=== PATIENT | male | born 1945 | race Caucasian/White ===

== ENCOUNTER 2017-06-27 07:30 | Outpatient (CLI) | payer MEDICARE, OTHER ==
[~2017-06-27] VITALS: Ht 177.8 cm; Wt 71.7 kg
--- NOTE | ~2017-06-27 | OP ---
PATIENT NAME: CHAZ JACOBSON MEDICAL RECORD: [id number] :43 LOCATION:D.CAT ADMISSION DATE: SURGEON: FATEMEH DOUGLASS MD DATE OF OPERATION: 06/27/2017 PROCEDURES: 1. PTCA stent to LAD. 2. Left heart catheterization. 3. Selective coronary angiography. 4. Left ventriculogram. INDICATION: Angina and coronary artery disease. PROCEDURE IN DETAIL: After informed consent was obtained and after detailed explanation of risks, benefits as well as alternative therapies, the patient elected to proceed with angiogram and angioplasty. The right radial area was prepped and draped in normal sterile fashion. Right radial artery was cannulated via modified Seldinger technique with placement of 6-Yoruba sheath. All catheters exchanged through this sheath. FINDINGS: Left ventriculogram was performed in standard 30 degree SESAY view reveals good cardiac wall motion throughout all segments. Overall ejection fraction 55% to 60%. SELECTIVE CORONARY ANGIOGRAPHY: 1. Left main is with no significant angiographic disease. 2. Left anterior descending has a long area of 80% to 90% stenosis in the proximal vessel. 3. Left circumflex shows moderate irregularities. 4. The right coronary artery has previously placed stents. There was greater than 70% in-stent restenosis in the mid vessel. PTCA STENT OF THE LAD: The stent used was a 2.5 x 26 mm Wilfrido. Result was 0% residual stenosis. OVERALL IMPRESSION: Successful percutaneous transluminal coronary angioplasty stent of the left anterior descending going from 80% to 90% initial stenosis. PLAN: PTCA stent of the RCA in the near future. TRANSINT:[id number] Voice Confirmation ID: [id number] DOCUMENT ID: [id number] FATEMEH DOUGLASS MD at 1759 CC: [id number] DICTATION DATE: 06/27/17 1023 BED SETTER: 06/27/17 1328 DEP CLI 06/28/17 [place] [id number]
--- NOTE | ~2017-06-27 | DS ---
PATIENT:CHAZ ACEVES :43 MEDICAL RECORD: [id number] DISCHARGE SUMMARY ADMISSION DATE: 06/27/17 DISCHARGE DATE: 06/28/17 DISCHARGE DIAGNOSES: 1. Angina. 2. Coronary artery disease. 3. Percutaneous transluminal coronary angioplasty and stent, left anterior descending and right coronary artery this admission. 4. Hypertension. 5. Hyperlipidemia. HOSPITAL COURSE: Mr. Aceves presents with anginal symptomatology, found to have 2-vessel coronary artery disease, underwent successful PTCA and stent of the LAD and RCA. Had an uneventful postop course. He was discharged home with the addition of aspirin and Plavix to his medical regimen. Will follow up with [facility] in 1 month. TRANSINT:[id number] Voice Confirmation ID: [id number] DOCUMENT ID: [id number] FATEMEH DOUGLASS MD at 1800 CC: [id number] DICTATION DATE: 06/28/17820 SAND CUTTER OPERATOR: 06/29/17 0224 DEP CLI 06/28/17 [place] [id number] [place] [address]
--- NOTE | ~2017-06-27 | HEMODYNAMI ---
PATIENT:CHAZ JACOBSON MEDICAL RECORD: [id number] : 43 [facility] [id number] ADMISSION DATE: 06/27/17 Generatedon:06/28/20178:22 Patient name: CHAZ JACOBSON Patient #: [id number] : 1945 Date of study: 06/28/2017 Page: Of Hemodynamic Procedure Report Patient Data Patient Demographics Procedure consent was obtained First Name: CHAZ Gender: Male Last Name: KAVON : 1945 Middle Initial: B Age: 72 year(s) Patient #: [id number] Race: SSN: [id number] Additional ID: [id number] Contact details Address: [address] [place] [address] State: [place] City: [place] Zip code: [address] Past Medical History Allergies: No known allergies Admission Admission Data Admission Date: 06/27/2017 Admission Time: 15:04 Arrival Date: 06/27/2017 Arrival Time: 15:04 Admit Source: Other Insurance Payor: Medicare Room #: D.2118 Height (in.): 5.11 Height (cm.): 12.98 Lab Results Lab Result Date: 06/27/2017 Lab Result Time: 0:00 Biochemistry Name Units Result Min Max BUN mg/dl 16 --(---*)-- 7 18 Creatinine mg/dl 1.1 --(--*-)-- 0.6 1.3 CBC Name Units Result Min Max Hemoglobin g/dl 13.8 --(*---)-- 13.5 17.5 Procedure Procedure Types Cath Procedure PCI Procedure Coronary Stent Coronary Stent Initial Miscellaneous Procedures Moderate Sedation up to 30 minutes Procedure Description Procedure Date Procedure Date: 06/28/2017 Procedure Start Time: 8:11 Procedure End Time: 8:21 Procedure Staff Name Function Tawanda Collier MD Performing Physician Makenzie Liz RT Monitor Eveline Arnold RT Scrub Buffie Gipson RN Nurse Procedure Data Cath Procedure Fluoroscopy Diagnostic fluoroscopy Total fluoroscopy Time: 1.4 time: 1.4 min min Diagnostic fluoroscopy Total fluoroscopy dose: 88 dose: 88 mGy mGy Contrast Material Contrast Material Type Amount (ml) Isovue 300 30 Entry Location Entry Primary Successful Side Size Upsize Upsize Entry Closure Succes sful Closure Location (Fr) 1 (Fr) 2 (Fr) Remarks Device Remarks Femoral Right 6 Fr Exoseal artery Short Estimated blood loss: 5 ml Procedure Complications No complications Procedure Medications Medication Administration Route Dosage Oxygen NC 2 l/min Heparin Flush Bag added to field 2 bags (1000units/500ml NS) 0.9% NaCl I.V. 100 ml/hr Plavix P.O. 75 mg Heparin Bolus I.V. 4000 units Fentanyl I.V. 100 mcg Versed I.V. 2 mg Fentanyl I.V. 100 mcg Hemodynamics Rest HGB: 13.8 (g/dl) Heart Rate: 60 (bpm) Snapshots Pre Cath Intra NCS Post Cath Vital Signs Time Heart Resp SPO2 etCO2 NIBP (mmHg) Rhythm Pain Sedation Rate (ipm) (%) (mmHg) Status Level (bpm) 7:57:23 57 16 97 0 162/90(136) NSR 0 (11) 10(A) , No pain 8:01:45 59 16 98 0 152/81(131) NSR 0 (11) 10(A) , No pain 8:06:01 58 17 98 0 136/83(128) NSR 0 (11) 10(A) , No pain 8:10:11 61 20 98 0 157/85(134) NSR 0 (11) 10(A) , No pain 8:14:31 54 23 100 0 147/79(123) NSR 0 (11) 10(A) , No pain 8:18:47 61 15 100 0 138/78(120) NSR 0 (11) 10(A) , No pain Medications Time Medication Route Dose Verified Delivered Reason Notes Effectiveness by by 8:02:37 Oxygen NC 2 Tawanda Prasad Per physician l/min Amira Gill RN 8:02:44 Heparin Flush added 2 Tawanda Prasad used for Bag to bags Amira Gill compacting machine operator/tender (1000units/500ml field NS) 8:02:52 0.9% NaCl I.V. 100 Tawanda Prasad Per physician ml/hr Amira Gill RN 8:03:20 Plavix P.O. 75 mg Tawanda Prasad for Amira Gill RN antiplatelet therapy 8:13:38 Fentanyl I.V. 100 Tawanda Wan for sedation mcg Amira Gipson RN 8:13:47 Versed I.V. 2 mg Tawanda Wan for sedation Amira Gipson RN 8:15:34 Heparin Bolus I.V. 4000 Tawanda Wan for verifie d units Amira Gipson RN anticoagulation by 8:16:49 Fentanyl I.V. 100 Tawanda Wan for sedation [facility] Amira Gipson RN Procedure Log Time Note 7:37:33 Informed consent obtained and on chart 7:37:56 Patient Height : 5.11 inches 7:38:17 Admit Source: Other 7:38:24 Arrival Date: 06/27/2017 3:04:00 PM 7:38:31 Insurance Payor : Medicare 7:39:20 Makenzie Liz RT(R) sent for patient. Start room use. 7:39:20 Time tracking: Regular hours 7:39:25 Plan of Care:Hemodynamics will remain stable., Cardiac rhythm will remain stable., Comfort level will be maintained., Respiratory function will remain adequate., Patient/ family verbilizes understanding of procedure., Procedure tolerated without complication., Recovers from procedure without complications.. 7:52:11 Patient received from PCU to CCL 2 Alert and oriented. Tansferred to table in Supine position. 7:52:12 Warm blankets applied, and radha hugger turned on for patient comfort. 7:52:12 Correct patient and procedure confirmed by team. 7:52:13 ECG and BP/O2 sat monitors applied to patient. 7:52:15 Full Disclosure recording started 7:56:16 Vital chart was started 8:00:27 Baseline sample Acquired. 8:00:32 Rhythm: sinus rhythm 8:00:39 H&P Date Dictated: 06/28/2017 Within 30 days and on chart., H&P Addendum completed by physician on day of procedure. (MUST COMPLETE FOR ALL OUTPATIENTS). 8:01:24 Pre-procedure instructions explained to patient. 8:01:25 Pre-op teaching completed and patient verbalized understanding. 8:01:26 Family in waiting room. 8:01:36 Patient NPO since Midnight. 8:01:54 Is the patient allergic to Iodine/contrast media? No. 8:01:55 Was the patient premedicated? No 8:01:57 Is patient on blood thinner?Yes 8:02:00 ACC The patient was administered the following blood thiners within the last 24 hours: ACCPlavix 8:02:02 Patient diabetic? Yes. 8:02:11 If diabetic: On Metformin? Yes 8:02:15 If on Metformin: Last Dose? 06/24/2017 8:02:29 Previous problem with sedation/anesthesia? No ? 8:02:30 Snore? Yes 8:02:31 Sleep apnea? No 8:02:36 Deviated septum? No 8:02:36 Opens mouth fully? Yes 8:02:37 Oxygen 2 l/min NC was administered by Osmar Gill RN; Per physician; 8:02:37 Sticks out tongue? Yes 8:02:39 Airway obstruction? No ? 8:02:44 Heparin Flush Bag (1000units/500ml NS) 2 bags added to field was administered by Osmar Gill RN; used for procedure; 8:02:44 Dentures? No ? 8:02:52 0.9% NaCl 100 ml/hr I.V. was administered by Osmar Gill RN; Per physician; 8:02:56 Pre procedure: right dorsailis pedis pulse 2+ Normal; easily identifiable; not easily obliterated 8:02:59 Pre procedure: left dorsailis pedis pulse 2+ Normal; easily identifiable; not easily obliterated 8:03:20 Plavix 75 mg P.O. was administered by Osmar Gill RN; for antiplatelet therapy; 8:04:45 Patient pain scale 0/10 ?. 8:04:54 IV patent on arrival in left forearm with 0.9% NaCl at [facility]. 8:05:01 Lab results completed and on chart. 8:05:06 Right groin area was prepped with chlora-prep and draped in sterile fashion 8:05:17 Alarms reviewed by Rahel N. 8:05:18 Sharps counted by scrub and verified by R.N. 8:05:38 Physician arrived 8:05:39 --------ALL STOP TIME OUT------ 8:05:40 Final Timeout: patient, procedure, and site verified with staff and physician. All members of the team are in agreement. 8:06:30 Right groin site verified by team. 8:06:33 Physical assessment completed. ASA score P 2 - A patient with mild systemic disease as per Tawanda Collier MD. 8:06:37 Sedation plan: IV Moderate Sedation Medication:Versed, Fentanyl 8:10:50 Zero performed for pressure channel P1 8:10:54 Zero performed for pressure channel P1 8:11:00 Zero performed for pressure channel P1 8:11:10 Procedure started. 8:11:23 Local anesthetic to right femoral artery with Lidocaine 2% by Tawanda Collier MD.INITIAL ACCESS ONLY 8:11:32 A 6 Fr Short sheath was inserted into the Right Femoral artery 8:11:45 Use device set Femoral Dx 8:11:46 ACIST Syringe (65646) opened to sterile field. 8:11:47 Bag Decanter (2002S) opened to sterile field. 8:11:50 Medline Cath Pack ([id number]) opened to sterile field. 8:11:52 DIAGNOSTIC WIRE .035 260cm J wire (143594) opened to sterile field. 8:11:53 ACIST Hand Control (14339) opened to sterile field. 8:11:53 ACIST Manifold (03744) opened to sterile field. 8:11:57 Tegaderm 4 x 4 (1626W) opened to sterile field. 8:12:03 SHEATH 6FR Speer (QOD659) opened to sterile field. 8:12:08 EXOSEAL 6Fr (EX600) opened to sterile field. 8:12:52 CHOICE PT Extra Support 182cm wire ([id number]) opened to sterile field. 8:12:53 INFLATOR Merit BasixCompak (BS5718) opened to sterile field. 8:13:38 Fentanyl 100 mcg I.V. was administered by Soco Gipson RN; for sedation; 8:13:47 Versed 2 mg I.V. was administered by Soco Gipson RN; for sedation; 8:15:31 GUIDE 6FR HS I catheter (LA6HSI) opened to sterile field. 8:15:34 Heparin Bolus 4000 units I.V. was administered by Soco Gipson RN; for anticoagulation; verified by 8:15:42 6 Fr hs 1 guide catheter was inserted over the wire 8:15:52 choice pt wire advanced. 8:16:12 Wire advanced across lesion. 8:16:49 Fentanyl 100 mcg I.V. was administered by Soco Gipson RN; for sedation; 8:17:48 Inflation Number: 1 A GUSTAVO RX 3.5 x 15 stent ([id number]) was prepped and advanced across the Mid RCA. The stent was deployed at 21 DAYO for 0:10 (min:sec). 8:17:54 Inflation number: 2 The stent balloon was then re-inflated across the Mid RCA to 23 DAYO for 0:10 (min:sec). 8:18:13 Stent catheter was removed intact over wire. 8:18:13 Wire removed. 8:18:14 Guide catheter removed. 8:18:20 Sheath removed intact; hemostasis achieved with Exoseal to the Right Femoral artery. 8:18:22 Procedure ended.(Physican Out) 8:19:50 Fluoroscopy time 01.40 minutes. 8:19:53 Flurop Dose total: 88 8:19:53 Fluoroscopy dose: 88 mGy 8:20:02 Contrast amount:Isovue 300 30ml. 8:20:04 Sharps counted by scrub and verified by R.N. 8:20:21 Insertion/operative site no bleeding no hematoma. 8:20:23 Post-op/insertion site Right Femoral artery dressed using a 4 x 4 and Tegaderm. 8:20:26 Post right femoral artery:stable 8:20:27 Post Procedure Pulses reassessed and unchanged 8:20:43 Post procedure rhythm: unchanged. 8:20:46 Estimated blood loss: 5 ml 8:20:47 Post procedure instruction explained to patient.Patient verbalizes understanding. 8:20:48 Patient needs reinforcement of post procedure teaching. 8:21:18 Procedure type changed to Cath procedure, PCI procedure, Coronary Stent, Coronary Stent Initial, Miscellaneous Procedures, Moderate Sedation up to 30 minutes 8:21:19 Procedure and supply charges have been captured, reviewed, submitted and are correct. 8:21:23 Procedure Complication : No complications 8:21:29 Vital chart was stopped 8:21:29 See physician's report for complete and final results. 8:21:32 Report given to [facility]. 8:21:34 Patient transfered to [facility] with Stretcher. 8:21:36 Procedure ended. 8:21:36 Full Disclosure recording stopped 8:21:43 ACC-PCI Only Patient was given prescriptions, or instructed by Tawanda Collier MD to start/continue the following medications upon discharge: Plavix 8:21:45 End room use (Document Last) Intervention Summary Intervention Notes Time ActionType Lesion and Equipment Used Action# Pressure Duration Attributes 8:17:48 Place stent Mid RCA GUSTAVO RX 3.5 x 1 21 00:10 15 stent ([id number]) 8:17:54 Reinflate Mid RCA GUSTAVO RX 3.5 x 2 23 00:10 stent 15 stent balloon ([id number]) Device Usage Item Name Manufacture Quantity Catalog Number Hospital Part Current M inimal Lot# / Charge Number Stock Stock Serial# Code ACIST Syringe Acist 1 93010 974959 227871 674508 2 0 (95625) Medical Systems Inc Bag Decanter Microtek 1 2001S 145844 49102 000321 5 (2001S) Medical Inc. Medline Cath Cardinal 1 [id number] 467280 08264 286353 5 Navent ([id number]) DIAGNOSTIC St Octaviano 1 760545 469505 153630 706435 3 0 WIRE .035 260cm J wire (214648) ACIST Hand Acist 1 32929 300881 846395 993873 5 Control Medical (80815) Systems Inc ACIST Manifold Acist 1 20455 856592 786808 482762 5 (21261) Medical Systems Inc Tegaderm 4 x 4 3M 1 1626W 422352 000934 759443 5 (1626W) SHEATH 6FR Terumo 1 IZQ085 387477 731425 621835 4 0 Speer ([id number]) EXOSEAL 6Fr Cardinal 1 EX600 266888 093319 069143 1 0 (EX600) [facility] [place] 1 [id number] 199939 468467 454770 5 Extra Support Scientific 182cm wire ([id number]) INFLATOR Merit Merit 1 PI9593 013540 853292 498562 1 5 Motostrano (XL5873) GUIDE 6FR HS I Medtronic 1 LA6HSI 814230 38096 649989 1 catheter (LA6HSI) GUSTAVO RX 3.5 x Medtronic 1 [id number] 447624 5976754 448153 5 [id number] 15 stent ([id number]) Signature Audit [place] Stage Time Signature Unsigned Intra-Procedure 06/28/2017 Makenzie Liz 8:22:47 AM RT(R) Signatures Monitor : Makenzie Liz RT Signature : Date : Time : [place] [id number] [place] [address]
--- NOTE | ~2017-06-27 | OP ---
PATIENT NAME: CHAZ JACOBSON MEDICAL RECORD: [id number] :43 LOCATION:D.CAT ADMISSION DATE: SURGEON: FATEMEH DOUGLASS MD DATE OF OPERATION: 06/28/2017 PROCEDURES: 1. PTCA stent to RCA. 2. Selective coronary angiography. PROCEDURE IN DETAIL: After informed consent was obtained and after detailed explanation of risks, benefits as well as alternative therapies, the patient elected to proceed with angiogram and angioplasty. The right femoral area was prepped and draped in normal sterile fashion. The right femoral artery was cannulated via modified Seldinger technique with placement of 6-Estonian sheath. All catheters exchanged through this sheath. FINDINGS: The right coronary artery has a 75% stenosis that has instent restenosis in the mid vessel. This was addressed with a 3.5 x 15 mm Wilfrido. Stent taken to 23 atmospheres. Result was 0% residual stenosis. OVERALL IMPRESSION: Successful percutaneous transluminal coronary angioplasty stent of the right coronary artery going from 75% initial stenosis to 0% residual. TRANSINT:[id number] Voice Confirmation ID: [id number] DOCUMENT ID: [id number] FATEMEH DOUGLASS MD at 1800 CC: [id number] DICTATION DATE: 06/28/17 08 OFFICE MACHINE SERVICE SUPERVISOR: 06/28/17 1130 [facility] CLI 06/28/17 [place] [address] [place] [address]
--- NOTE | ~2017-06-27 | HEMODYNAMI ---
PATIENT:CHAZ JACOBSON MEDICAL RECORD: [id number] : 43 LOCATION:[facility] ADMISSION DATE: 06/27/17 Generatedon:06/27/201710:23 Patient name: CHAZ JACOBSON Patient #: [id number] SSN: : 1945 Date of study: 06/27/2017 Page: Of Hemodynamic Procedure Report Patient Data Patient Demographics Procedure consent was obtained First Name: CHAZ Gender: Male Last Name: KAVON : 1945 [facility] Initial: B Age: 72 year(s) Patient #: [id number] Race: Unknown Additional ID: [id number] Contact details Address: [address] [place] [address] State: [place] City: [place] Zip code: [address] Past Medical History Allergies: No known allergies Admission Admission Data Admission Date: 06/27/2017 Admission Time: 9:30 Height (in.): 5.11 Height (cm.): 12.98 Lab Results Lab Result Date: 06/27/2017 Lab Result Time: 0:00 Biochemistry Name Units Result Min Max BUN mg/dl 16 --(---*)-- 7 18 Creatinine mg/dl 1.1 --(--*-)-- 0.6 1.3 CBC Name Units Result Min Max Hemoglobin g/dl 13.8 --(*---)-- 13.5 17.5 Procedure Procedure Types Cath Procedure Diagnostic Procedure [facility] w/Coronaries PCI Procedure Coronary Stent Coronary Stent Initial Miscellaneous Procedures Moderate Sedation up to 15 minutes Procedure Description Procedure Date Procedure Date: 06/27/2017 Procedure Start Time: 9:50 Procedure End Time: 10:23 Procedure Staff Name Function Tawanda Collier MD Performing Physician Jayden Layton RT Monitor Madeline Rust RT Scrub Soco Gipson RN Nurse Osmar Gill RN Reading Coach Procedure Data Cath Procedure Fluoroscopy Diagnostic fluoroscopy Total fluoroscopy Time: time: 14.3 min 14.3 min Diagnostic fluoroscopy Total fluoroscopy dose: dose: 706.54 mGy 706.54 mGy Contrast Material Contrast Material Type Amount (ml) Isovue 300 184 Entry Location Entry Primary Successful Side Size Upsize Upsize Entry Closure Dupont ccessful Closure Location (Fr) 1 (Fr) 2 (Fr) Remarks Device Remarks Radial Right 6 Fr Mechanical artery Short Compression Estimated blood loss: 10 ml Diagnostic catheters Device Type Used For End Catheter Placement DIAGNOSTIC Willard 110cm 5 Procedure Fr catheter ([id number]) Procedure Medications Medication Administration Route Dosage Oxygen NC 2 l/min Lidocaine 2% added to field 20 Heparin Flush Bag added to field 2 bags (1000units/500ml NS) 0.9% NaCl I.V. 100 ml/hr Radial Cocktail I.A. 1 syringe (Verapomil 2mg/Nitro 400mcg/Heparin 1500units) Versed I.V. 1 mg Fentanyl I.V. 50 mcg Versed I.V. 1 mg Fentanyl I.V. 50 mcg Fentanyl I.V. 50 mcg Heparin Bolus I.V. 4000 units Fentanyl I.V. 50 mcg Versed I.V. 1 mg Versed I.V. 1 mg Hemodynamics Rest HGB: 13.8 (g/dl) Heart Rate: 57 (bpm) Pressure Samples Time Site Value (mmHg) Purpose Heart Use Rate(bpm) 9:52 LV 100/8,15 Snapshot 62 Snapshots Pre Cath Intra NCS Post Cath Vital Signs Time Heart Resp SPO2 etCO2 NIBP (mmHg) Rhythm Pain Sedation Rate (ipm) (%) (mmHg) Status Level (bpm) 9:20:47 53 22 98 0 158/91(114) NSR 0 (11) 10(A) , No pain 9:25:07 56 16 100 34.1 152/92(126) NSR 0 (11) 10(A) , No pain 9:29:27 55 16 100 31.8 147/80(130) NSR 0 (11) 10(A) , No pain 9:33:45 57 15 98 35.6 146/85(133) NSR 0 (11) 10(A) , No pain 9:37:53 60 15 99 34.3 141/92(124) NSR 0 (11) 10(A) , No pain 9:42:09 54 16 97 32.6 136/78(119) NSR 0 (11) 10(A) , No pain 9:46:23 57 15 97 29.8 126/80(113) NSR 0 (11) 9(A) , No pain 9:50:31 56 16 99 35.6 131/80(120) NSR 0 (11) 9(A) , No pain 9:54:42 60 14 95 31.8 119/68(92) NSR 0 (11) 9(A) , No pain 9:58:52 69 15 95 22.7 111/74(96) NSR 0 (11) 9(A) , No pain 10:03:02 67 15 97 33.4 128/66(108) NSR 0 (11) 9(A) , No pain 10:07:12 68 16 96 28.8 128/73(106) NSR 0 (11) 9(A) , No pain 10:11:24 67 15 95 16.7 112/72(100) NSR 0 (11) 10(A) , No pain 10:15:32 63 16 96 30.3 109/71(104) NSR 0 (11) 10(A) , No pain 10:19:38 66 15 95 26.6 130/73(95) NSR 0 (11) 10(A) , No pain Medications Time Medication Route Dose Verified Delivered Reason Note s Effectiveness by by 9:25:09 Oxygen NC 2 l/min Tawanda Buffie used for Amira Gipson RN procedure 9:25:17 Lidocaine 2% added 20ml Tawanda Tawanda for local to vial Amira Collier MD anesthetic field 9:25:23 Heparin Flush added 2 bags Tawanda Neff used for Bag to Amira Collier MD procedure (1000units/500ml field NS) 9:25:33 0.9% NaCl I.V. 100 Tawanda Buffie Per physician ml/hr Amira Gipson RN 9:44:10 Versed I.V. 1 mg Tawanda Doughertyie for sedation Amira Gipson RN 9:44:16 Fentanyl I.V. 50 mcg Tawanda Buffie for sedation Amira Gipson RN 9:50:12 Versed I.V. 1 mg Tawanda Buffie for sedation Amira Gipson RN 9:50:18 Fentanyl I.V. 50 mcg Tawanda Doughertyie for sedation Amira Gipson RN 9:51:47 Radial Cocktail I.A. 1 Tawanda Tawanda for (Verapomil syringe [place] Collier MD vasodilation 2mg/Nitro 400mcg/Heparin 1500units) 9:55:47 Fentanyl I.V. 50 mcg Tawanda Wan for sedation Amira Gipson RN 9:57:26 Heparin Bolus I.V. 4000 Tawanda Wan for veri fied units Amira Gipson RN anticoagulation with dr collier 10:00:04 Fentanyl I.V. 50 mcg Tawanda Wan for sedation Amira Gipson RN 10:02:21 Versed I.V. 1 mg Tawanda Doughertyie for sedation Amira Gipson RN 10:07:16 Versed I.V. 1 mg Tawanda Wan for sedation Amira Gipson RN Procedure Log Time Note 9:03:40 Time tracking: Regular hours 9:03:44 Plan of Care:Hemodynamics will remain stable., Cardiac rhythm will remain stable., Comfort level will be maintained., Respiratory function will remain adequate., Patient/ family verbilizes understanding of procedure., Procedure tolerated without complication., Recovers from procedure without complications.. 9:03:54 Signed procedure consent form obtained from patient. 9:04:10 H&P Date Dictated: 06/15/2017 Within 30 days and on chart., H&P Addendum completed by physician on day of procedure. (MUST COMPLETE FOR ALL OUTPATIENTS). 9:05:02 Patient Height : 5.11 inches 9:06:52 Lab Result : BUN 16 mg/dl 9:06:52 Lab Result : Creatinine 1.1 mg/dl 9:06:52 Lab Result : Hemoglobin 13.8 g/dl 9:06:55 Lab results completed and on chart. 9:07:14 Patient allergic to No known allergies 9:08:23 Osmar Gill RN sent for patient. Start room use. 9:12:50 Patient received from Pre/Post Procedure Room to CCL 3 Alert and oriented. Tansferred to table in Supine position. 9:12:58 Warm blankets applied, and radha hugger turned on for patient comfort. 9:12:59 Correct patient and procedure confirmed by team. 9:12:59 ECG and BP/O2 sat monitors applied to patient. 9:19:35 Vital chart was started 9:19:39 Baseline sample Acquired. 9:19:58 Rhythm: sinus bradycardia 9:20:01 Full Disclosure recording started 9:20:06 Family in patients room. 9:20:20 Is the patient allergic to Iodine/contrast media? No. 9:20:39 Is patient on blood thinner?Yes 9:20:43 ACC The patient was administered the following blood thiners within the last 24 hours: ACCPlavix 9:20:46 Patient diabetic? Yes. 9:20:49 If diabetic: On Metformin? Yes 9:21:06 If on Metformin: Last Dose? 06/25/2017 9:21:12 ----Pre-sedation anethsthesia assessment.---- 9:21:15 Previous problem with sedation/anesthesia? No ? 9:21:17 Snore? Yes 9:21:18 Sleep apnea? No 9:21:21 Deviated septum? No 9:21:22 Opens mouth fully? Yes 9:21:23 Sticks out tongue? Yes 9:21:31 Airway obstruction? No ? 9:21:43 Dentures? Yes BRIDGE IN TIGHT 9:21:51 Pre procedure: right dorsailis pedis pulse 2+ Normal; easily identifiable; not easily obliterated 9:22:00 Modified Mason's test Ulnar < 7 seconds 9:22:05 Patient pain scale 2/10 ?. 9:22:32 IV patent on arrival in left forearm with 0.9% NaCl at [facility]. 9:22:42 Right Radial & Right Groin area was prepped with chlora-prep and draped in sterile fashion 9:22:44 Alarms reviewed by R. N. 9:22:45 Sharps counted by scrub and verified by R.N. 9:25:09 Oxygen 2 l/min NC was administered by Soco Gipson RN; used for procedure; 9:25:17 Lidocaine 2% 20ml vial added to field was administered by Tawanda Collier MD; for local anesthetic; 9:25:23 Heparin Flush Bag (1000units/500ml NS) 2 bags added to field was administered by Tawanda Collier MD; used for procedure; 9:25:33 0.9% NaCl 100 ml/hr I.V. was administered by Soco Gipson RN; Per physician; 9:30:55 Diagnostic Cath Status : Elective 9:32:03 Use device set Radial Dx or PCI 9:32:05 ACIST Syringe (66954) opened to sterile field. 9:32:06 Medline Cath Pack ([id number]) opened to sterile field. 9:32:06 Bag Decanter () opened to sterile field. 9:32:07 SHEATH 6FR Slender ([id number]) opened to sterile field. 9:32:08 DIAGNOSTIC WIRE .035 260cm J wire (127301) opened to sterile field. 9:32:09 ACIST Hand Control (23928) opened to sterile field. 9:32:10 ACIST Manifold (21803) opened to sterile field. 9:32:11 Tegaderm 4 x 4 (1626W) opened to sterile field. 9:32:11 MBrace Wrist Support ([id number]) opened to sterile field. 9:33:58 Physician paged 9:42:44 Physician arrived 9:42:45 --------ALL STOP TIME OUT------ 9:42:45 Final Timeout: patient, procedure, and site verified with staff and physician. All members of the team are in agreement. 9:42:49 Right Radial & Right Groin site verified by team. 9:42:52 Physical assessment completed. ASA score P 2 - A patient with mild systemic disease as per Tawanda Collier MD. 9:42:57 Sedation plan: IV Moderate Sedation Medication:Versed, Fentanyl 9:44:10 Versed 1 mg I.V. was administered by Soco Gipson RN; for sedation; 9:44:16 Fentanyl 50 mcg I.V. was administered by Soco Gipson RN; for sedation; 9:47:51 Zero performed for pressure channel P1 9:50:12 Versed 1 mg I.V. was administered by Soco Gipson RN; for sedation; 9:50:18 Procedure started. 9:50:18 Fentanyl 50 mcg I.V. was administered by Soco Gipson RN; for sedation; 9:50:38 Local anesthetic to right radial artery with Lidocaine 2% by Tawanda Collier MD.INITIAL ACCESS ONLY 9:51:06 A 6 Fr Short sheath was inserted into the Right Radial artery 9:51:47 Radial Cocktail (Verapomil 2mg/Nitro 400mcg/Heparin 1500units) 1 syringe I.A. was administered by Tawanda Collier MD; for vasodilation; 9:52:12 A DIAGNOSTIC Willard 110cm 5 Fr catheter ([id number]) was advanced over the wire and used for Procedure. 9:52:54 LV gram done using SESAY 9:53:02 LV hemodynamics recorded. 9:53:27 EF : 60 % 9:54:17 LCA angiography performed. 9:55:47 Fentanyl 50 mcg I.V. was administered by Soco Gipson RN; for sedation; 9:55:53 RCA angiography performed. 9:56:34 Catheter removed. 9:56:36 Proceeding to intervention. 9:57:26 Heparin Bolus 4000 units I.V. was administered by Soco Gipson RN; for anticoagulation; verified with dr collier 9:57:46 GUIDE 6FR XBLAD 3.5 catheter ([id number]) opened to sterile field. 9:57:47 INFLATOR Merit BasixCompak (GP9260) opened to sterile field. 9:59:03 CHOICE PT Extra Support 182cm wire ([id number]) opened to sterile field. 9:59:18 6 Fr XBLAD 3.5 guide catheter was inserted over the wire 9:59:28 CHOICE wire advanced. 9:59:48 Wire advanced across lesion. 10:00:04 Fentanyl 50 mcg I.V. was administered by Soco Gipson RN; for sedation; 10:00:42 Inflation Number: 1 A GUSTAVO RX 2.5 x 26 stent ([id number]) was prepped and advanced across the Prox LAD. The stent was deployed at 13 DAYO for 0:10 (min:sec). 10:01:12 Wire removed. 10:01:13 Stent catheter was removed intact over wire. 10:01:30 Wire redirected to RAMUS. 10:02:21 Versed 1 mg I.V. was administered by Soco Gipson RN; for sedation; 10:04:29 Wire removed. 10:06:05 FIELDER XT J 300cm guide wire ([id number]) opened to sterile field. 10:06:39 FIELDER wire advanced. 10:07:16 Versed 1 mg I.V. was administered by Soco Gipson RN; for sedation; 10:07:19 ATTEMPTING TO WIRE THE RAMUS 10:08:55 Wire advanced across lesion. 10:12:56 MAVERICK 2.0 X 20 ADVANCED TO EXCHANGE WIRE 10:13:06 WHISPER 300cm guide wire ([id number]) opened to sterile field. 10:13:21 WHISPER 300 wire advanced. 10:17:05 Wire removed. 10:17:07 Guide catheter removed. 10:18:39 TR BAND Standard ([id number]) opened to sterile field. 10:18:56 Sheath removed intact; hemostasis achieved with Mechanical Compression to the Right Radial artery. 10:18:58 Procedure ended.(Physican Out) 10:19:14 Fluoroscopy time 14.30 minutes. 10:19:22 Fluoroscopy dose: 706.54 mGy 10:19:22 Flurop Dose total: 706.54 10:19:29 Contrast amount:Isovue 300 184ml. 10:19:31 Sharps counted by scrub and verified by R.N. 10:19:41 TR band inflated with 11cc of air. 10:19:44 Insertion/operative site no bleeding no hematoma. 10:19:52 Post right radial artery:stable 10:20:40 Post-procedure physical assessment completed. ASA score P 2 - A patient with mild systemic disease as per Tawanda Collier MD. 10:20:49 Post procedure rhythm: sinus rhythm 10:20:54 Estimated blood loss: 10 ml 10:21:00 Post procedure instruction explained to patient.Patient verbalizes understanding. 10:21:02 Patient needs reinforcement of post procedure teaching. 10:21:17 Procedure type changed to Cath procedure, Diagnostic procedure, LHC, LHC w/Coronaries, PCI procedure, Coronary Stent, Coronary Stent Initial, Miscellaneous Procedures, Moderate Sedation up to 15 minutes 10:22:15 Procedure and supply charges have been captured, reviewed, submitted and are correct. 10:23:09 Vital chart was stopped 10:23:10 See physician's report for complete and final results. 10:23:12 Report given to Pre/Post Procedure Room. 10:23:16 Patient transfered to Pre/Post Procedure Room with Stretcher. 10:23:19 Procedure ended. 10:23:19 Full Disclosure recording stopped 10:23:22 End room use (Document Last) Intervention Summary Intervention Notes Time ActionType Lesion and Equipment Used Action# Pressure Duration Attributes 10:00:[address] stent Prox LAD GUSTAVO RX 2.5 x 1 13 00:10 26 stent ([id number]) Device Usage Item Name Manufacture Quantity Catalog Number Hospital Part Current M inimal Lot# / Charge Number Stock Stock Serial# Code ACIST Syringe Acist 1 90729 485574 727139 142934 2 0 (00289) Medical Systems Inc Medline Cath Cardinal 1 [id number] 747258 75704 928397 5 Pack Health ([id number]) Bag Decanter Microtek 1 2001S 317622 79811 789843 5 () Medical Inc. SHEATH 6FR Terumo 1 [id number] 275632 716625 866696 4 0 Slender ([id number]) DIAGNOSTIC St Octaviano 1 755972 427771 716263 538863 3 0 WIRE .035 260cm J wire (095172) ACIST Hand Acist 1 13622 783967 948444 123497 5 Control Medical (71768) Systems Inc ACIST Manifold Acist 1 22290 278257 603579 875467 5 (37208) Medical Systems Inc Tegaderm 4 x 4 3M 1 1626W 626442 568868 175975 5 (1626W) MBrace Wrist Advanced 1 140-0250-00 628540 71750 163171 5 Support Vascular ([id number]) Dynamics DIAGNOSTIC Terumo 1 40-5013 877661 547982 157804 5 Willard 110cm 5 Fr catheter (484835) GUIDE 6FR Cardinal 1 [id number] 879138 930934 764878 1 0 XBLAD 3.5 Health catheter (92783647) INFLATOR Merit Merit 1 JE6807 489203 092669 986048 1 5 sailsquarescLivestage (HC2622) CHOICE PT [place] 1 [id number] 399356 505442 471783 5 Extra Support Scientific 182cm wire (3928078V5) GUSTAVO RX 2.5 x Medtronic 1 [id number] 897463 9547079 437478 5 [id number] 26 stent ([id number]) FIELDER XT J Corona 1 [id number] 610874 322307 598082 5 300cm guide Vascular wire ([id number]) WHISPER 300cm Corona 1 [id number] 809319 580783 137937 5 guide wire Vascular (6962857RL) TR BAND Terumo 1 [id number] 770980 103828 089296 4 0 Standard ([id number]) Signature Audit [place] Stage Time Signature Unsigned Intra-Procedure 06/27/2017 Jayden Layton 10:23:50 AM RT(R) (CV) Signatures Monitor : Jayden Layton RT Signature : Date : Time : [id number] [place] [address]
[2017-06-27] MEDS ORDERED: GLUCOPHAGE1000 MG PO (07:34)
[2017-06-27] MEDS ORDERED: ASPIRIN325 MG PO (07:34)
[2017-06-27] MEDS ORDERED: BYSTOLIC2.5 MG PO (07:34)
[2017-06-27] MEDS ORDERED: ZOCOR40 MG PO (07:34)
[2017-06-27] MEDS ORDERED: ALTACE2.5 MG PO (07:34)
[2017-06-27] MEDS ORDERED: OMEPRAZOLE20 M1 PO (07:35)
[2017-06-27 07:50] LABS: BASOPHILS 1.6 % (0-2); EOSINOPHILS 8.4 % (0-7); HEMOGLOBIN 13.8 g/dL (13.5-17.5); IMMATURE GRANULOCYTES 0.3 % (0-5); LYMPHOCYTES 24.6 % (15-50); MCHC 32.9 g/dL (31.0-37.0); MCV 88.2 fL (80.0-100.0); MEAN PLATELET VOLUME 10.1 fL (7.4-10.4); MONOCYTES 12.4 % (2-11); NEUTROPHILS 52.7 % (40-80); PLATELET COUNT 288 10x3/uL (130-400); RBC 4.76 10x6/uL (4.20-6.10); RDW 13.1 % (11.5-14.5); WBC 7.4 10x3/uL (4.8-10.8)
[2017-06-27 07:57] VITALS: BP 152/85; BMI 22.2
[2017-06-27 08:07] LABS: ANION GAP 11.4 mmol/L (8-16); CALCIUM 8.8 mg/dL (8.5-10.1); CARBON DIOXIDE 28.8 mmol/L (21.0-32.0); CREATININE - SERUM 1.1 mg/dL (0.6-1.3); POTASSIUM - SERUM 4.2 mmol/L (3.5-5.1)
[2017-06-27 15:35] VITALS: BP 152/85; Ht 177.8 cm; Wt 71.7 kg
[2017-06-27 21:12] VITALS: BP 136/79
[2017-06-28 05:39] VITALS: BP 128/79
[2017-06-28] MEDS ORDERED: PLAVIX75 MG PO (10:18)
== END 2017-06-28 13:11 | disposition home or self-care (01) ==
LOC: OBSVTIME → D.CATH 07:30 → D.M2 15:04 → D.CATH 15:04 → OBSVTIME 15:04 → D.M2 06-28 13:11 → D.CATH 06-28 13:11
PROVIDERS: Internal Medicine Interventional Cardiology
DX: I25.119 Atherosclerotic heart disease of native coronary artery with unspecified angina pectoris (principal); T82.855A Stenosis of coronary artery stent, initial encounter; Y83.8 Other surgical procedures as the cause of abnormal reaction of the patient, or of later complication, without mention of misadventure at the time of the procedure; I10 Essential (primary) hypertension; E78.5 Hyperlipidemia, unspecified
CPT/HCPCS: 93458; C9600 ×2

== ENCOUNTER → 2019-05-25 08:51 | Outpatient (CLI) | payer MEDICARE, BC ==
[2017-06-27 15:35] VITALS: BMI 22.1
--- NOTE | ~2019-05-25 | ST ---
PATIENT:CHAZ JACOBSON MEDICAL RECORD: [id number] SEX: M LOCATION:[facility] ORDER #: ADMISSION DATE: 05/25/19 AGE OF PATIENT: 73 REFERRING PHYSICIAN: INTERPRETING PHYSICIAN: FATEMEH DOUGLASS MD DATE OF SERVICE: 05/25/2019 INDICATION: Angina, coronary artery disease, shortness of breath, hypertension and hyperlipidemia. TECHNIQUE: He was exercised on standard Lexiscan protocol with 27 mCi of sestamibi injected at peak stress, 9 mCi used previously for rest images. FINDINGS: Gated SPECT reveals preserved ejection fraction at 61% with good wall motion and thickening and brightening throughout all segments. SPECT imaging Cardiolite was used as myocardial perfusion agent. There is reversibility anteriorly apically as well as inferiorly. This includes the basal, mid, apical anterior segments as well as the apex itself as well as the basal, mid, apical inferior segments. OVERALL IMPRESSION: This is a high risk abnormal nuclear stress test with reversible ischemia anteriorly, apically, and inferiorly suggestive of hemodynamically significant multivessel coronary artery disease. TRANSINT:[id number] Voice Confirmation ID: [id number] DOCUMENT ID: [id number] FATEMEH DOUGLASS MD CC: RYAN RUBIO [id number] DICTATION DATE: 05/25/19 1527 FLORIST MANAGER: 05/26/19 0834 [facility] CLI 05/25/19 [address] [place] [address]
[~2019-05-25 08:51] MED LIST: ALTACE2.5 MG PO; ASPIRIN325 MG PO; BYSTOLIC2.5 MG PO; GLUCOPHAGE1000 MG PO; OMEPRAZOLE20 M1 PO; PLAVIX75 MG PO; ZOCOR40 MG PO
== END | disposition home or self-care (01) ==
LOC: D.HCCARDIO 08:51
PROVIDERS: ATTEND Internal Medicine Interventional Cardiology
DX: I25.10 Atherosclerotic heart disease of native coronary artery without angina pectoris (principal)

== ENCOUNTER 2019-06-01 07:02 | Outpatient (CLI) | payer MEDICARE, BC ==
[~2019-06-01] VITALS: Ht 177.8 cm; Wt 72.7 kg
--- NOTE | ~2019-06-01 | HEMODYNAMI ---
PATIENT:CHAZ JACOBSON MEDICAL RECORD: [id number] : 43 LOCATION:PATI REBOLLEDO ADMISSION DATE: 06/01/19 Generatedon:06/01/20199:47 Patient name: CHAZ JACOBSON Patient #: [id number] : 1945 Date of study: 06/01/2019 Page: Of Hemodynamic Procedure Report Patient Data Patient Demographics Procedure consent was obtained First Name: CHAZ Gender: Male Last Name: KAVON : 1945 [facility] Initial: B Age: 74 year(s) Patient #: [id number] Race: SSN: [id number] Additional ID: [id number] Contact details [address]: [address] [place] [address] State: [place] City: [place] Zip code: [address] Past Medical History Performed procedures and imaging results Date Procedure Procedure Results Comments Stress testing with Positive->High SPECT MPI risk History of disease Date Diagnosis Comments CAD Allergies Allergen Reaction Date Comments Reported Other allergy 06/01/2019 SIMVASTATIN Admission Admission Data Admission Date: 06/01/2019 Admission Time: 7:02 Arrival Date: 06/01/2019 Arrival Time: 0:00 [facility] Height (in.): 70 BSA: 1.9 (m2) Height (cm.): 177.8 BMI: 23.09 (kg/m2) Weight (lbs.): 160.94 Weight (kg.): 73 Lab Results Lab Result Date: 06/01/2019 Lab Result Time: 0:00 Biochemistry Name Units Result Min Max BUN mg/dl 17 --(---*)-- 7 18 Creatinine mg/dl 1.3 --(---*)-- 0.6 1.3 eGFR ml/min 57 *-(----)-- 90 120 NONAFRICAN CBC Name Units Result Min Max Hematocrit % 38.8 *-(----)-- 42 54 Hemoglobin g/dl 12.4 *-(----)-- 13.5 17.5 Procedure Procedure Types Cath Procedure Diagnostic Procedure [facility] w/Coronaries FFR/IVUS FFR Initial Sedation Charges Moderate Sedation up to 30 minutes PCI Procedure Coronary Stent Coronary Stent Initial Coronary Atherectomy Atherectomy w/Stent Coronary Initial Hemochron ACT Test Procedure Description Procedure Date Procedure Date: 06/01/2019 Procedure Start Time: 9:12 Procedure End Time: 9:45 Procedure Staff Name Function Tawanda Collier MD Performing Physician Madeline Rust RT Monitor Margi Frye RT Scrub Elaine Flanagan RN Nurse Procedure Data Cath Procedure Fluoroscopy Diagnostic fluoroscopy Total fluoroscopy Time: 11 time: 11 min min Diagnostic fluoroscopy Total fluoroscopy dose: 964 dose: 964 mGy mGy Contrast Material Contrast Material Type Amount (ml) Isovue 300 153 Entry Location Entry Primary Successful Side Size Upsize Upsize Entry Closure Dupont ccessful Closure Location (Fr) 1 (Fr) 2 (Fr) Remarks Device Remarks Radial Right 6 Fr Mechanical artery Short Compression Estimated blood loss: 10 ml Diagnostic catheters Device Type Used For End Catheter Placement DIAGNOSTIC [place] 110cm 5 Procedure Fr catheter ([id number]) Procedure Complications No complications Procedure Medications Medication Administration Route Dosage 0.9% NaCl I.V. 100 ml/hr Oxygen etCO2 Nasal cannula 2 l/min Lidocaine 2% added to field 20 Heparin Flush Bag added to field 2 bags (1000units/500ml NS) Radial Cocktail added to field 1 syringe (Verapamil 2mg/Nitro 400mcg/Heparin 1500units) Versed I.V. 2 mg Fentanyl I.V. 50 mcg Heparin Bolus I.V. 4000 units Integrilin (Bolus I.V. 6.8 ml 2mg/ml) Integrilin (Bolus wasted 3.2 ml 2mg/ml) Plavix P.O. 600 mg Fentanyl I.V. 50 mcg Versed I.V. 2 mg Hemodynamics Rest BSA: 1.9 (m2) O2 Consumption: Estimated: 258.4 (ml/min) O2 Consumption indexed: Estimated:136 (ml/min/m) Pre Cath Intra NCS Post Cath Vital Signs Time Heart Resp SPO2 etCO2 NIBP (mmHg) Rhythm Pain Sedation Rate (ipm) (%) (mmHg) Status Level (bpm) 8:56:44 59 15 96 29.8 Measuring 1 0 (11) 10(A) degree , No AV pain Block 8:56:52 65 14 96 30.5 171/105(110) 1 0 (11) 10(A) degree , No AV pain Block 9:01:51 65 13 99 33.5 Measuring 1 0 (11) 10(A) degree , No AV pain Block 9:02:20 66 13 99 29 139/88(124) 1 0 (11) 10(A) degree , No AV pain Block 9:06:36 62 13 97 36.5 148/82(132) 1 0 (11) 10(A) degree , No AV pain Block 9:10:50 65 12 98 32.7 135/80(97) 1 0 (11) 10(A) degree , No AV pain Block 9:15:00 65 11 97 31.2 120/75(93) 1 0 (11) 10(A) degree , No AV pain Block 9:19:12 67 11 98 34.2 119/71(93) 1 0 (11) 10(A) degree , No AV pain Block 9:23:22 74 12 98 35.7 117/71(97) 1 0 (11) 10(A) degree , No AV pain Block 9:27:36 74 14 98 36.4 110/65(94) 1 0 (11) 9(A) degree , No AV pain Block 9:31:44 76 13 96 35.7 110/71(102) 1 0 (11) 9(A) degree , No AV pain Block 9:35:45 70 13 96 20.8 114/78(91) 1 0 (11) 9(A) degree , No AV pain Block 9:40:44 70 14 96 30.5 149/96(139) 1 0 (11) 10(A) degree , No AV pain Block 9:45:06 63 15 97 34.2 130/71(116) 1 0 (11) 10(A) degree , No AV pain Block Medications Time Medication Route Dose Verified Delivered Reason Note s Effectiveness by by 8:55:04 0.9% NaCl I.V. 100 Tawanda Mcfarlanea used for ml/hr Amira Flanagan return agent airport 8:55:11 Oxygen etCO2 2 l/min Tawanda Henry used for Nasal Amira Flanagan procedure cannula RN 8:55:16 Lidocaine 2% added 20ml Tawanda Neff for local to vial Tauth MD Tauth MD anesthetic field 8:55:21 Heparin Flush added 2 bags Tawanda Neff used for Bag to Amira Collier MD procedure (1000units/500ml field NS) 8:58:40 Radial Cocktail added 1 Tawanda Neff (Verapamil to syringe Amira Collier MD 2mg/Nitro field 400mcg/Heparin 1500units) 9:10:40 Versed I.V. 2 mg Tawanda Elaine for sedation Amira Flanagan RN 9:10:45 Fentanyl I.V. 50 mcg Tawanda Elaine for sedation Amira Flanagan RN 9:19:21 Heparin Bolus I.V. 4000 Tawanda Elaine for veri fied units Amira Flanagan anticoagulation with Dr. COLLETTE Collier 9:19:37 Integrilin I.V. 6.8 ml Tawanda Elaine for (Bolus 2mg/ml) Amira Flanagan antiplatelet RN therapy 9:19:53 Integrilin wasted 3.2 ml Tawanda Elaine for (Bolus 2mg/ml) Amira Flanagan antiplatelet RN therapy 9:20:05 Plavix P.O. 600 mg Tawanda Elaine for Amira Flanagan antiplatelet RN therapy 9:20:17 Fentanyl I.V. 50 mcg Tawanda Elaine for sedation Amira Flanagan RN 9:20:37 Versed I.V. 2 mg Tawanda Elaine for sedation Amira Flanagan aoc director intelligence officer Log Time Note 18:40:47 SOME TIMES ARE OFF DUE TO A GLITCH IN MCKESSON 18:40:47 Edwards band inflated with 8cc of air. 18:40:47 Fluoroscopy time 11.00 minutes. 18:40:47 Physical assessment completed. ASA score P 2 - A patient with mild systemic disease as per Tawanda Collier MD. 18:40:47 PRESSURE WIRE REMOVED 8:24:34 Informed consent obtained and on chart 8:24:59 Procedure Status Elective Heart Cath (OP). 8:25:01 Time tracking: Regular hours (M-F 7:00 - 5:00) 8:25:05 Plan of Care:Hemodynamics will remain stable., Cardiac rhythm will remain stable., Comfort level will be maintained., Respiratory function will remain adequate., Patient/ family verbilizes understanding of procedure., Procedure tolerated without complication., Recovers from procedure without complications.. 8:27:39 H&P Date Dictated: 05/17/2019 Within 30 days and on chart., H&P Addendum completed by physician on day of procedure. (MUST COMPLETE FOR ALL OUTPATIENTS). 8:28:08 Patient allergic to Other allergySIMVASTATIN 8:28:48 Lab Result : BUN 17 mg/dl 8::48 Lab Result : Creatinine 1.3 mg/dl 8::48 Lab Result : Hemoglobin 12.4 g/dl 8::48 Lab Result : eGFR NONAFRICAN 57 ml/min 8:28:48 Lab Result : Hematocrit 38.8 % 8:29:02 Patient Weight : 160.94 lbs 8:29:08 Patient Height : 70 inches 8:29:17 Arrival Date: 06/01/2019 12:00:00 AM 8:40:25 Elaine Flanagan RN sent for patient. Start room use. 8:42:48 Risk of Mortality: .1. 8:42:52 Risk of blood transfusion: 1 8:42:55 Risk of ISAIAH: 1.5 8:43:09 Stress Test: yes; abnormal MULTIVESSEL 8:50:35 Patient received from Pre/Post Procedure Room to CCL 1 Alert and oriented. Tansferred to table in Supine position. 8:50:36 Warm blankets applied, and radha hugger turned on for patient comfort. 8:50:36 Correct patient and procedure confirmed by team. 8:50:36 ECG and BP/O2 sat monitors applied to patient. 8:54:56 Vital chart was started 8:55:04 0.9% NaCl 100 ml/hr I.V. was administered by Elaine Flanagan RN; used for procedure; Verbal order read back and verified. 8:55:11 Oxygen 2 l/min etCO2 Nasal cannula was administered by Elaine Flanagan RN; used for procedure; Verbal order read back and verified. 8:55:16 Lidocaine 2% 20ml vial added to field was administered by Tawanda Collier MD; for local anesthetic; Verbal order read back and verified. 8:55:21 Heparin Flush Bag (1000units/500ml NS) 2 bags added to field was administered by Tawanda Collier MD; used for procedure; Verbal order read back and verified. 8:58:40 Radial Cocktail (Verapamil 2mg/Nitro 400mcg/Heparin 1500units) 1 syringe added to field was administered by Tawanda Collier MD; ; Verbal order read back and verified. 8:59:20 Rhythm: sinus rhythm 8:59:25 Full Disclosure recording started 8:59:26 Pre-procedure instructions explained to patient. 8:59:26 Pre-op teaching completed and patient verbalized understanding. 8:59:28 Family in patients room. 8:59:29 Patient NPO since Midnight. 8:59:31 Is the patient allergic to Iodine/contrast media? No. 8:59:32 Is patient on blood thinner?No 8:59:33 Patient diabetic? Yes. 8:59:34 If diabetic: On Metformin? Yes 8:59:38 If on Metformin: Last Dose? 05/30/2019 8:59:44 Previous problem with sedation/anesthesia? No ? 8:59:44 Snore? Yes 8:59:45 Sleep apnea? No 8:59:46 Deviated septum? No 8:59:47 Opens mouth fully? Yes 8:59:48 Sticks out tongue? Yes 8:59:51 Dentures? No ? 8:59:54 Airway obstruction? No ? 8:59:57 Pre procedure: right dorsailis pedis pulse 1+ Palpable, but thready & weak; easily obliterated 8:59:59 Modified Mason's test Ulnar < 7 seconds 9:00:01 Patient pain scale 0/10 ?. 9:00:05 IV patent on arrival in left forearm with 0.9% NaCl at KVO. 9:00:07 Lab results completed and on chart. 9:00:12 Right Radial & Right Groin area was prepped with chlora-prep and draped in sterile fashion 9:00:14 Alarms reviewed by R. N. 9:00:14 Sharps counted by scrub and verified by R.N. 9:00:17 Use device set Radial Dx or PCI 9:00:19 ACIST Syringe (81379) opened to sterile field. 9:00:20 Bag Decanter (2002S) opened to sterile field. 9:00:20 ACIST Hand Control (76593) opened to sterile field. 9:00:20 ACIST Manifold (06171) opened to sterile field. 9:00:21 Tegaderm 4 x 4 (1626W) opened to sterile field. 9:00:22 Medline Cath Pack ([id number]) opened to sterile field. 9:00:23 [place] Wrist Support ([id number]) opened to sterile field. 9:00:24 EMERALD Guide Wire (691-644) opened to sterile field. 9:00:24 SHEATH 6FR RAIN (2985319) opened to sterile field. 9:07:54 --------ALL STOP TIME OUT------ 9:07:54 Final Timeout: patient, procedure, and site verified with staff and physician. All members of the team are in agreement. 9:07:56 Right Radial & Right Groin site verified by team. 9:07:59 Fire Safety Assessment: A--An alcohol-based skin anteseptic being used preoperatively., C--Open oxygen or nitrous oxide is being used., D--An ESU, laser, or fiber-optic light is being used. 9:08:20 3a) 45-59 Moderately reduced kidney function. 9:08:24 Maximum allowable contrast dose (3.7 X eGFR X 0.75)128 ml. 9:08:30 Sedation plan: IV Moderate Sedation Medication:Versed, Fentanyl 9:10:40 Versed 2 mg I.V. was administered by Elaine Flanagan RN; for sedation; Verbal order read back and verified. 9:10:45 Fentanyl 50 mcg I.V. was administered by Elaine Flanagan RN; for sedation; Verbal order read back and verified. 9:11:30 Procedure started. 9:12:01 Local anesthetic to right radial artery with Lidocaine 2% by Tawanda Collier MD.INITIAL ACCESS ONLY 9:12:42 A 6 Fr Short sheath was inserted into the Right Radial artery 9:12:59 A DIAGNOSTIC [place] 110cm 5 Fr catheter ([id number]) was advanced over the wire and used for Procedure. 9:14:11 LV gram done using SESAY 9:14:13 Injector settings: Ml/sec: 5, Volume: 15, 9:14:20 EF : 50 % 9:15:21 LCA angiography performed. 9:15:57 RCA angiography performed. 9:15:58 Catheter exchanged over wire. 9:16:32 Proceeding to intervention. 9:16:36 GUIDE 6FR XBLAD 3.5 catheter ([id number]) opened to sterile field. 9:16:36 INFLATOR Merit Nancypak (CU2220) opened to sterile field. 9:16:54 CHOICE PT Extra Support 182cm wire ([id number]) opened to sterile field. 9:17:08 6 Fr XBLAD 3.5 guide catheter was inserted over the wire 9:17:32 Owanka Verrata Plus pressure wire (80963N) opened to sterile field. 9:19:21 Heparin Bolus 4000 units I.V. was administered by Elaine Flanagan RN; for anticoagulation; verified with Dr. Collier Verbal order read back and verified. 9:19:37 Integrilin (Bolus 2mg/ml) 6.8 ml I.V. was administered by Elaine Flanagan RN; for antiplatelet therapy; Verbal order read back and verified. 9:19:53 Integrilin (Bolus 2mg/ml) 3.2 ml wasted was administered by Elaine Flanagan RN; for antiplatelet therapy; Verbal order read back and verified. 9:20:05 Plavix 600 mg P.O. was administered by Elaine Flanagan RN; for antiplatelet therapy; Verbal order read back and verified. 9:20:17 Fentanyl 50 mcg I.V. was administered by Elaine Flanagan RN; for sedation; Verbal order read back and verified. 9:20:18 FFR/IFR wire advanced. 9:20:37 Versed 2 mg I.V. was administered by Elaine Flanagan RN; for sedation; Verbal order read back and verified. 9:22:19 Wire advanced across lesion. 9:22:42 Ramus lesion measured at .84 with IFR 9:23:00 CHOICE ES 182 wire advanced. 9:23:26 Pre PCI Site: [place]oi Ramus has 80% stenosis. 9:26:54 Pre PCI Site: [place] Diag1 has 90% stenosis. 9:26:56 Wire advanced across DIAG lesion. 9:27:43 Inflate balloon Inflation number: 1 A EUPHORA 2.0 x 10 Balloon ([id number]) was prepped and advanced across the 1st Diag , then inflated to 13 DAYO for 0:00 (min:sec) . 9:27:48 Balloon removed over the wire. 9:29:07 Place stent Inflation Number: 2 A GUSTAVO RX 2.0 x 8 stent ([id number]) was prepped and advanced across the 1st Diag . The stent was deployed at 13 DAYO for 0:00 (min:sec) . 9:29:33 Inflation number: 3 The stent balloon was then re-inflated across the 1st Diag to 7 DAYO for 0:00 (min:sec) . 9:29:45 Stent catheter was removed intact over wire. 9:29:46 Wire removed. 9:29:47 Guide catheter removed. 9:30:19 GUIDE 6FR AR 2.0 catheter ([id number]) opened to sterile field. 9:30:24 LASER ELCA 0.9 Rx atherectomy catheter (540065) opened to sterile field. 9:30:36 Pre PCI Site: [place]oi mRCA has 90% stenosis. 9:32:51 6 Fr AR 2 guide catheter was inserted over the wire 9:33:19 CHOICE ES 182 wire advanced. 9:33:55 Wire advanced across lesion. 9:35:04 Laser pass to mRCA with Fluence of 80 and Rate of 40. 9:35:07 ACT drawn and resulted at 286 seconds. (normal therapeutic range 180-240 seconds). 9:37:03 Laser catheter removed. 9:37:04 Laser total pulses delivered: ? 9:37:07 Laser total treatment time: 0 minutes 0 seconds 9:38:07 ?. 9:38:30 Place stent Inflation Number: 1 A GUSTAVO RX 4.0 x 15 stent ([id number]) was prepped and advanced across the Mid RCA . The stent was deployed at 17 DAYO for 0:00 (min:sec) . 9:38:39 Inflation number: 2 The stent balloon was then re-inflated across the Mid RCA to 17 DAYO for 0:00 (min:sec) . 9:39:25 Stent catheter was removed intact over wire. 9:40:29 Inflate balloon Inflation number: 3 A NC EUPHORA 4.0 x 12 balloon ([id number]) was prepped and advanced across the Mid RCA , then inflated to 23 DAYO for 0:00 (min:sec) . 9:40:54 Balloon removed over the wire. 9:40:55 Wire removed. 9:40:55 Guide catheter removed. 9:41:14 ZEPHYR REGULAR TR BAND ([id number]) opened to sterile field. 9:41:29 Procedure ended.(Physican Out) 9:41:53 Sheath removed intact; hemostasis achieved with Mechanical Compression to the Right Radial artery. 9:42:07 Flurop Dose total: 964 9:42:07 Fluoroscopy dose: 964 mGy 9:42:28 Dose Area Product 33285 mGy/cm. 9:42:31 Contrast amount:Isovue 300 153ml. 9:42:34 Maximum allowable dose exceeded? Yes. 9:42:35 Sharps counted by scrub and verified by R.N. 9:42:40 Post-procedure physical assessment completed. ASA score P 2 - A patient with mild systemic disease as per Tawanda Collier MD. 9:42:50 Post procedure rhythm: unchanged. 9:42:57 Estimated blood loss: 10 ml 9:42:59 Patient needs reinforcement of post procedure teaching. 9:42:59 Post procedure instruction explained to patient.Patient verbalizes understanding. 9:43:54 Procedure type changed to Cath procedure, Diagnostic procedure, LHC, LHC w/Coronaries, FFR/IVUS, FFR Initial, Sedation Charges, Moderate Sedation up to 30 minutes, PCI procedure, Coronary Stent, Coronary Stent Initial, Coronary Atherectomy, Atherectomy w/Stent Coronary Initial, Hemochron ACT Test 9:45:11 Procedure and supply charges have been captured, reviewed, submitted and are correct. 9:45:13 Procedure Complication : No complications 9:45:15 Vital chart was stopped 9:45:16 [facility] Findings: MVD- PCI performed (see procedure note) 9:45:17 Operative report dictated upon procedure completion. 9:45:18 See physician's report for complete and final results. 9:45:20 Report given to Pre/Post Procedure Room. 9:45:23 Patient transfered to Pre/Post Procedure Room with Bed. 9:45:25 Procedure ended. 9:45:25 Full Disclosure recording stopped 9:45:32 ACC-PCI Only Patient was given prescriptions, or instructed by Tawanda Collier MD to start/continue the following medications upon discharge: Plavix 9:46:08 End room use (Document Last) Intervention Summary Intervention Notes Time ActionType Lesion and Equipment Used Action# Pressure Duration Attributes 9:27:43 Inflate 1st Diag EUPHORA 2.0 x 1 13 00:00 balloon 10 Balloon ([id number]) 9:29:07 Place stent 1st Diag GUSTAVO RX 2.0 x 2 13 00:00 8 stent ([id number]) 9:29:33 Reinflate 1st Diag GUSTAVO RX 2.0 x 3 7 00:00 stent 8 stent balloon ([id number]) 9:38:30 Place stent Mid RCA GUSTAVO RX 4.0 x 1 17 00:00 15 stent ([id number]) 9:38:39 Reinflate Mid RCA GUSTAVO RX 4.0 x 2 17 00:00 stent 15 stent balloon ([id number]) 9:40:29 Inflate Mid RCA NC EUPHORA 4.0 3 23 00:00 balloon x 12 balloon ([id number]) Device Usage Item Name Manufacture Quantity Catalog Number Hospital Part Current Minimal Lot# / Charge Number Stock Stock Serial# Code ACIST Syringe Acist 1 58630 283576 456620 448210 20 (59227) Medical Systems Inc Bag Decanter Microtek 1 2001S 349888 71061 606252 5 (2001S) Medical Inc. ACIST Hand Acist 1 95030 435937 411961 927387 5 Control Medical (98601) Systems Inc ACIST Manifold Acist 1 94920 719530 105024 283956 5 (28422) Medical Systems Inc Tegaderm 4 x 4 3M 1 1626W 933819 630135 541920 5 (1626W) Medline Cath Medline 1 [id number] 743613 35151 077216 5 Pack ([id number]) MBrace Wrist Advanced 1 140-0250-00 352779 02561 377112 5 Support Vascular (365270645) Dynamics EMERALD Guide Cardinal 1 502-455 616106 008377 161614 5 Wire (502-455) Health SHEATH 6FR Cardinal 1 3643885 632225 3108177 444623 5 RAIN (6724719) Health DIAGNOSTIC Terumo 1 40-7184 454781 840221 993022 5 [place] 110cm 5 Fr catheter (999319) GUIDE 6FR Cardinal 1 [id number] 776792 812738 334059 10 XBLAD 3.5 Health catheter (83975762) INFLATOR Merit Merit 1 KD4228 338986 924311 338462 15 SimpleRelevance (NH5298) CHOICE PT [place] 1 [id number] 222505 172762 196575 5 Extra Support Scientific 182cm wire (5359870Q5) Owanka Owanka 1 61280I 751632 810599740 236089 5 Verrata Plus pressure wire (62261C) EUPHORA 2.0 x Medtronic 1 [id number] 506706 543366 128950 5 [id number] 10 Balloon ([id number]) GUSTAVO RX 2.0 x Medtronic 1 [id number] 908220 9208677 493268 5 [id number] 8 stent ([id number]) GUIDE 6FR AR Medtronic 1 [id number] 332866 29436 023851 1 2.0 catheter ([id number]) LASER ELCA 0.9 Rufus 1 110-004 990274 771011 805392 5 Rx atherectomy Healthcare catheter (421054) (909314) GUSTAVO RX 4.0 x Medtronic 1 [id number] 333512 8154716 531784 5 [id number] 15 stent ([id number]) NC EUPHORA 4.0 Medtronic 1 [id number] 483757 084136 569270 1 [id number] x 12 balloon ([id number]) ZEPHYR REGULAR Cardinal 1 470145 370036 6052939 744553 5 TR [facility] [employer] (933481) Signature Audit [place] Stage Time Signature Unsigned Intra-Procedure 06/01/2019 Madeline Rust 9:47:14 AM RT(R) Intra-Procedure 06/01/2019 Elaine Flanagan 9:47:40 AM RN Intra-Procedure 06/01/2019 Tawanda Collier 9:47:55 AM [place] [address] [place] [address]
[2019-06-01] MEDS ORDERED: LIVALO2 MG PO (07:17)
[2019-06-01] MEDS ORDERED: TOPROL XL25 MG PO (07:19)
[2019-06-01 07:38] VITALS: BP 160/86; Ht 177.8 cm; Wt 72.7 kg
[2019-06-01 07:48] LABS: BASOPHILS 1.8 % (0-2); EOSINOPHILS 7.6 % (0-7); HEMATOCRIT 38.8 % (42.0-54.0); HEMOGLOBIN 12.4 g/dL (13.5-17.5); IMMATURE GRANULOCYTES 0.4 % (0-5); LYMPHOCYTES 24.1 % (15-50); MCH 26.7 pg (26.0-34.0); MCV 83.6 fL (80.0-100.0); MEAN PLATELET VOLUME 9.7 fL (7.4-10.4); MONOCYTES 14.3 % (2-11); NEUTROPHILS 51.8 % (40-80); PLATELET COUNT 340 10x3/uL (130-400); RBC 4.64 10x6/uL (4.20-6.10); RDW 14.2 % (11.5-14.5); WBC 7.2 10x3/uL (4.8-10.8)
[2019-06-01 08:00] LABS: ANION GAP 11.8 mmol/L (8-16); CARBON DIOXIDE 28.3 mmol/L (21.0-32.0); CREATININE - SERUM 1.3 mg/dL (0.6-1.3); POTASSIUM - SERUM 4.1 mmol/L (3.5-5.1)
[2019-06-01] MEDS ORDERED: BAYER CHEWABLE81 MG PO (09:48)
[2019-06-01] MEDS ORDERED: PLAVIX75 MG PO (09:48)
--- NOTE | 2019-06-01 09:55 | NUR ---
PT RECEIVED VIA STRETCHER FROM DOCENT COORDINATOR FOR RECOVERY. PT AWAKE BUT DROWSY, DENIES PAIN OR DISCOMFORT. IV PATENT INFUSING VIA ORDERS TO L ARM. PT PLACED ON CARDIAC MONITORS. O2 SAT ON ROOM AIR 92, PLACED O2 ON VIA NC AT 2L. HR NSR RATE 62, BP 138/71, RR 12. R WRIST W ZYPHER BAND AND IMMOBILIZER. DRESSING CDI NO BLEEDING OR S/S HEMATOMA NOTED. ARM PINK AND WARM, CAP REFILL BRISK. CALL LIGHT IN REACH.
--- NOTE | 2019-06-01 10:15 | NUR ---
PT RESTING, DENIES PAIN OR DISCOMFORT. ZBAND AND IMMOBILIZER IN PLACE, DRESSING CDI NO S/S HEMATOMA NOTED. CAP REFILL BRISK. HR 57, BP 127/67, RR 14, SAT 96. FAMILY AT BEDSIDE, CALL LIGHT IN REACH
--- NOTE | 2019-06-01 11:00 | NUR ---
R WRIST W/O S/S HEMATOMA NOTED. CAP REFILL BRISK. VSS. PT MORE AWAKE, DENIES PAIN OR NEEDS AT THIS TIME. CALL LIGHT IN REACH, FAMILY REMAIN AT BS.
--- NOTE | 2019-06-01 11:30 | NUR ---
R WRIST W/O BLEEDING OR S/S HEMATOMA NOTED. PT DENIES NEEDS AT THIS TIME. CALL LIGHT IN REACH.
--- NOTE | 2019-06-01 12:02 | NUR ---
PT DOING WELL, DR DOUGLASS WAS IN AND SPOKE WITH PT AND REGARDING PLAN OF CARE AND PROCEDURE RESULTS. ZBAND IN PLACE, DRESSING REMAINS CDI NO BLEEDING OR S/S HEMATOMA NOTED. CAP REFILL REMAINS BRISK. HOB ELEVATED AND SANDWICH AND DRINK SERVED. VSS. CALL LIGHT IN REACH
--- NOTE | 2019-06-01 12:36 | NUR ---
4 CC AIR REMOVED FROM Z BAND, NO BLEEDING NOTED. NO S/S HEMATOMA NOTED. CAP REFILL BRISK. PT TOLERATED LUNCH TRAY W/O NAUSEA. DENIES NEEDS AT THIS TIME. VSS. CALL LIGHT IN REACH
--- NOTE | 2019-06-01 13:05 | NUR ---
3 ADD'L CC AIR REMOVED FROM Z BAND. NO BLEEDING OR SWELLING NOTED. VSS. PT DENIES PAIN OR NEEDS.
--- NOTE | 2019-06-01 13:30 | NUR ---
PT DOING WELL, O2 REMOVED, SAT ON ROOM AIR 95. Z BAND AND IMMOBILIZER IN PLACE, DRSG CLD NO S/S HEMATOMA NOTED. CALL LIGHT IN REACH
--- NOTE | 2019-06-01 13:45 | NUR ---
2 MORE CC AIR REMOVED FROM Z BAND, NO BLEEDING OR S/S HEMATOMA NOTED. CAP REFILL BRISK. VSS. DISCHARGE INSTRUCTIONS REVIEWED W CATH INTACT, MONITORS REMOVED AND PT UP TO DRESS FOR DISCHARGE.
--- NOTE | 2019-06-01 13:50 | NUR ---
PT AMBULATED TO BR, VOIDING W/O DIFFICULITY. ZBAND AND REMAINING AIR REMOVED W/O BLEEDING OR S/S HEMATOMA. 2X2 AND TEGADERM DRESSING APPLIED. IMMOBILIZER RE APPLIED TO R ARM. 1400 PT DISCHARGED TO WAITING IN PRIVATE VEHICLE. PT HAD ALL BELONGINGS AND DISCHARGE PAPERWORK.
--- NOTE | 2019-06-04 11:13 | OP ---
PATIENT NAME: CHAZ JACOBSON MEDICAL RECORD: [id number] :43 LOCATION:D.CAT ADMISSION DATE: SURGEON: FATEMEH DOUGLASS MD DATE OF OPERATION: 06/01/2019 PROCEDURES: 1. Laser atherectomy with PTCA and stent of RCA. 2. PTCA and stent of LAD diagonal. 3. IFR. 4. Left heart catheterization. 5. Selective coronary angiography. 6. Left ventriculogram. INDICATIONS: Unstable angina and coronary artery disease. PROCEDURE IN DETAIL: After informed consent was obtained and after a detailed explanation of the risks, benefits as well as alternative therapy, the patient elected to proceed with angiogram and angioplasty. The right radial area was prepped and draped in normal sterile fashion. Right radial artery was cannulated via modified Seldinger technique with placement of 6-Icelandic sheath. All catheters exchanged through this sheath. FINDINGS: Left ventriculogram was performed in a standard 30-degree SESAY view reveals preserved ejection fraction at 50%. SELECTIVE CORONARY ANGIOGRAPHY: 1. Left main is with no significant angiographic disease. 2. Left anterior descending has previously placed stents, these are widely patent; however, the diagonal was 95% stenosed. 3. There is a ramus intermedius that appears to have an auto-dissection and has rerouted. IFR was abnormal; however, we could never cannulate what we felt was the true lumen, hence no intervention will be undertaken at this vessel. Otherwise, the circumflex has previously placed stents that are widely patent. 4. The right coronary has previously placed stents with 90% in-stent restenosis in the proximal vessel. PTCA AND STENT OF THE LAD DIAGONAL: The stent used was a 2.0 x 8-mm Wilfrido. Result was 0% residual stenosis. PTCA AND STENT, LASER ATHERECTOMY OF THE RCA: Laser atherectomy was performed. Multiple passes were made with a 0.9 laser catheter at 80/40. We then stented this with a 4.0 x 15 Wilfrido stent. Then, we used a 4.0 high pressure balloon to 23 atmospheres. We could not fully expand the stent. There was still a 30% residual stenosis. OVERALL IMPRESSION: Successful PTCA and stent, laser atherectomy of the RCA and successful PTCA and stent of the LAD diagonal as described above. TRANSINT:[id number] Voice Confirmation ID: [id number] DOCUMENT ID: [id number] OPERATIVE REPORT [id number] CHAZ JACOBSON JEFFREY MD at 1113 CC: [id number] DICTATION DATE: 06/01/19 0947 CAR DRYER: 06/01/19 1257 DEP CLI 06/01/19 [place] [id number] [place] [address]
== END 2019-06-01 14:00 | disposition home or self-care (01) ==
LOC: D.CATH 07:02 → D.CLR 07:15 → D.CATH 09:00
PROVIDERS: ATTEND Internal Medicine Interventional Cardiology
DX: I25.110 Atherosclerotic heart disease of native coronary artery with unstable angina pectoris (principal); R06.09 Other forms of dyspnea; I10 Essential (primary) hypertension; E78.5 Hyperlipidemia, unspecified
CPT/HCPCS: 93458; 93571; C9602; C9600